=== PATIENT | female | born 1975 ===

== ENCOUNTER 2017-01-27 21:45 | Outpatient (CLI) | payer BC ==
[~2017-01-27] VITALS: Ht 152.4 cm; Wt 59.1 kg
[2017-01-27 22:05] VITALS: BP 103/62; PULSE 76; TEMP 98.3
[2017-01-27] MEDS ORDERED: PRENATAL1 TA7 PO (22:17)
== END 2017-01-27 23:30 | disposition home or self-care (01) ==
LOC: LDRO 21:45
DX: Z34.83 Encounter for supervision of other normal pregnancy, third trimester (principal); Z3A.37 37 weeks gestation of pregnancy

== ENCOUNTER 2017-01-27 22:04 | Inpatient (IN) | payer BC ==
[~2017-01-27] VITALS: Ht 160 cm; Wt 59.5 kg
[2017-01-27] MEDS ORDERED: PRENATAL1 TA7 PO (22:17)
[2017-02-06] VITALS (20 sets, daily range): BP systolic 78–106; BP diastolic 47–66; PULSE 50–83; TEMP 97.8–98.4
[2017-02-06 06:56] LABS: HEMATOCRIT 34.2 % (37.0-47.0); HEMOGLOBIN 11.7 g/dl (12.5-16.0); MEAN CELL VOLUME 89 fl (80.0-100.0); MEAN CORPUSCULAR HEMOGLOBIN 30 pg (27.0-31.0); MEAN CORPUSCULAR HGB CONC 34 g/dl (33.0-37.0); MEAN PLATELET VOLUME 9.8 fl (7.4-10.4); PLATELET COUNT 220 K/mm3 (130-400); RED BLOOD COUNT 3.84 M/mm3 (4.10-5.30); REDCELL DISTRIBUTION WIDTH-CV 13.4 % (11.5-14.5); WHITE BLOOD COUNT 9.5 K/mm3 (4.8-10.8)
[2017-02-06 06:57] LABS: ADD PATHOLOGY DIFF REVIEW NO
[2017-02-06 07:32] LABS: BAND 8 % (0-10); BASOPHIL 1 % (0-2); EOSINOPHIL 1 % (0-4); METAMYELOCYTE 2 % (0-0); NEUTROPHILS 59 % (42.0-75.2); PLATELET ESTIMATE NORMAL (NORMAL); TOTAL CELLS COUNTED 100
[2017-02-07 03:00] VITALS: BP 102/54; PULSE 55; TEMP 98.4
[2017-02-07 08:15] VITALS: BP 98/55; PULSE 71; TEMP 97.5
[2017-02-07] MEDS ORDERED: PERCOCET 325 MG1 TA2 PO (10:23)
[2017-02-07] MEDS ORDERED: IBU800 M1 PO (10:23)
[2017-02-07 16:00] VITALS: BP 107/55; PULSE 77
[2017-02-07 18:58] VITALS: BP 91/52; PULSE 71; TEMP 98.4
[2017-02-08 07:18] VITALS: BP 94/62; PULSE 76; TEMP 98.1
== END 2017-02-08 11:50 | disposition home or self-care (01) | DRG 766 ==
LOC: LDRO 22:04 → OB 02-06 05:37 → EDSTATUS 02-06 06:49 → OB 02-06 06:54 → LDRO 02-06 09:02 → OB 02-08 11:50
PROVIDERS: Obstetrics & Gynecology
PROC: 10D00Z1 Extraction of Products of Conception, Low, Open Approach (ICD-10-PCS; principal; 2017-02-06)
DX: O34.211 Maternal care for low transverse scar from previous cesarean delivery (principal); N85.8 Other specified noninflammatory disorders of uterus; Z3A.39 39 weeks gestation of pregnancy; Z37.0 Single live birth
CPT/HCPCS: J0690; J1885; J2270; J2370; J2405; J2590; J7120